=== PATIENT | male | born 1995 | race Caucasian/White ===

== ENCOUNTER 2017-02-21 04:49 | Emergency (ER) | payer SELFPAY ==
[~2017-02-21] VITALS: Ht 175.3 cm; Wt 79.3 kg
[2017-02-21 04:55] VITALS: BP 132/65; PULSE 85; RESP 20; TEMP 99.6; O2SAT 0; O2SAT 99
[2017-02-21 05:36] LABS: BLOOD, URINE NEG (NEG); GLUCOSE,URINE NEG (NEG); NITRITE,URINE NEG (NEG)
[2017-02-21 05:44] LABS: KETONE, URINE 80 OR GREATER mg/dL (NEG)
[2017-02-21 05:45] LABS: URINE COLOR YELLOW (YELLW/STRAW)
[2017-02-21 05:46] LABS: COMMENT (UR) CULT NOT INDICATED; CULTURE IF INDICATED CULT NOT INDICATED; MUCUS URINE MOD /lpf (OCC); RBC, URINE 0-3 /hpf (0-3); SQUAMOUS EPITHELIAL CELL URINE 0-5 /hpf (0-5)
[2017-02-21 05:53] LABS: AUTOMATED NEUTROPHIL # 6.6 TH/MM3 (1.8-7.7); BASOPHIL % 0.5 % (0.0-2.0); CHLORIDE 102 MEQ/L (98-107); EOSINOPHIL # 0.1 TH/MM3 (0-0.4); EOSINOPHIL % 1.2 % (0.0-4.0); HEMATOCRIT 42.8 % (39.0-51.0); HEMO FLAGS DIFF FINAL; LYMPH % 14.1 % (9.0-44.0); LYMPHOCYTE # 1.2 TH/MM3 (1.0-4.8); MEAN CELL VOLUME 82.3 FL (80.0-100.0); MEAN CORPUSCULAR HEMOGLOBIN 28.3 PG (27.0-34.0); MEAN CORPUSCULAR HGB CONC 34.4 % (32.0-36.0); MONO % 9.2 % (0.0-8.0); PLATELET COUNT 207 TH/MM3 (150-450); POTASSIUM 3.1 MEQ/L (3.5-5.1); RED BLOOD COUNT 5.21 MIL/MM3 (4.50-5.90); RED CELL DISTRIBUTION WIDTH 11.8 % (11.6-17.2); SODIUM (NA) 138 MEQ/L (136-145); WHITE BLOOD COUNT 8.7 TH/MM3 (4.0-11.0)
[2017-02-21 05:57] LABS: ANION GAP 10 MEQ/L (5-15); BICARBONATE 25.7 MEQ/L (21.0-32.0); BLOOD UREA NITROGEN 10 MG/DL (7-18)
[2017-02-21 06:00] LABS: ALT (GPT) 11 U/L (12-78); AST (GOT) 22 U/L (15-37); GLOMERULAR FILTRATION RATE 114 ML/MIN (>89)
[2017-02-21 06:02] LABS: TOTAL BILIRUBIN ADULT 0.9 MG/DL (0.2-1.0)
[2017-02-21 06:03] LABS: ALKALINE PHOSPHATASE 77 U/L (45-117)
--- NOTE | 2017-02-21 06:38 | PD ---
HPI Chief Complaint: GI Complaint Time Seen by Provider: 05:04 Travel History International Travel<30 days: No Contact w/Intl Traveler<30days: No Traveled to known affect area: No History of Present Illness HPI The patient is a 21-year-old male that complains of abdominal pain since Wednesday. On Wednesday he took what appear to be some Lortab fives for his back pain. The patient has a decreased appetite and started vomiting on Wednesday. He last vomited 10 PM tonight. His last bowel movement was hard. He denies any diarrhea. PFSH Past Medical History Medical History: Denies Significant Hx Tetanus Vaccination: > 5 Years Influenza Vaccination: No Past Surgical History Surgical History: No Previous Surgery Social History Alcohol Use: Yes ("SOMETIMES") Tobacco Use: Yes ("EVERY NOW AND THEN") Substance Use: No Allergies-Medications (Allergen,Severity, Reaction): Coded Allergies: No Known Allergies (Unverified , 02/21/17) Reported Meds & Prescriptions Reported Meds & Active Scripts Active Phenergan (Promethazine HCl) 25 Mg Tablet 25 Mg PO Q6H PRN Omeprazole 20 Mg Tab 20 Mg PO DAILY Review of Systems Except as stated in HPI: all other systems reviewed are Neg Physical Exam Narrative GENERAL: The patient is alert, oriented 3, moderately dehydrated appearing in slight apparent distress with his midline epigastric pain. His vital signs are normal. SKIN: Focused skin assessment warm/dry. HEAD: Atraumatic. Normocephalic. EYES: Pupils equal and round. No scleral icterus. No injection or drainage. ENT: No nasal bleeding or discharge. Mucous membranes show a fiery red throat without exudate or abscess. NECK: Trachea midline. No JVD. CARDIOVASCULAR: Regular rate and rhythm. No murmur appreciated. RESPIRATORY: No accessory muscle use. Clear to auscultation. Breath sounds equal bilaterally. GASTROINTESTINAL: Abdomen soft, with tenderness in the midline epigastrium to direct palpation, nondistended. Hepatic and splenic margins not palpable. No guarding or rebound is present. MUSCULOSKELETAL: No obvious deformities. No clubbing. No cyanosis. No edema. NEUROLOGICAL: Awake and alert. No obvious cranial nerve deficits. Motor grossly within normal limits. Normal speech. PSYCHIATRIC: Appropriate mood and affect; insight and judgment normal. Data Data Last Documented VS Vital Signs Date Time Temp Pulse Resp B/P Pulse Ox O2 Delivery O2 Flow Rate FiO2 7/30/17 04:55 99.6 85 20 132/65 99 Orders Complete Blood Count With Diff (02/21/17 05:21) Comprehensive Metabolic Panel (02/21/17 05:21) Lipase (02/21/17 05:21) Urinalysis - C+S If Indicated (02/21/17 05:21) Group A Rapid Strep Screen (02/21/17 05:21) Monoscreen (02/21/17 05:21) Strep Culture (Group A) (02/21/17 05:20) Sodium Chlor 0.9% 1000 Ml Inj (Ns 1000 M (02/21/17 06:45) Labs Laboratory Tests Test 02/21/17 02/21/17 05:25 05:30 White Blood Count 8.7 TH/MM3 Red Blood Count 5.21 MIL/MM3 Hemoglobin 14.7 GM/DL Hematocrit 42.8 % Mean Corpuscular Volume 82.3 FL Mean Corpuscular Hemoglobin 28.3 PG Mean Corpuscular Hemoglobin 34.4 % Concent Red Cell Distribution Width 11.8 % Platelet Count 207 TH/MM3 Mean Platelet Volume 9.2 FL Neutrophils (%) (Auto) 75.0 % Lymphocytes (%) (Auto) 14.1 % Monocytes (%) (Auto) 9.2 % Eosinophils (%) (Auto) 1.2 % Basophils (%) (Auto) 0.5 % Neutrophils # (Auto) 6.6 TH/MM3 Lymphocytes # (Auto) 1.2 TH/MM3 Monocytes # (Auto) 0.8 TH/MM3 Eosinophils # (Auto) 0.1 TH/MM3 Basophils # (Auto) 0.0 TH/MM3 CBC Comment DIFF FINAL Differential Comment Sodium Level 138 MEQ/L Potassium Level 3.1 MEQ/L Chloride Level 102 MEQ/L Carbon Dioxide Level 25.7 MEQ/L Anion Gap 10 MEQ/L Blood Urea Nitrogen 10 MG/DL Creatinine 0.85 MG/DL Estimat Glomerular Filtration 114 ML/MIN Rate Random Glucose 107 MG/DL Calcium Level 8.6 MG/DL Total Bilirubin 0.9 MG/DL Aspartate Amino Transf 22 U/L (AST/SGOT) Alanine Aminotransferase 11 U/L (ALT/SGPT) Alkaline Phosphatase 77 U/L Total Protein 7.6 GM/DL Albumin 3.6 GM/DL Lipase 116 U/L Urine Color YELLOW Urine Turbidity CLEAR Urine pH 6.0 Urine Specific [place] 1.030 Urine Protein 30 mg/dL Urine Glucose (UA) NEG mg/dL Urine Ketones 80 OR GREATER mg/dL Urine Occult Blood NEG Urine Nitrite NEG Urine Bilirubin NEG Urine Leukocyte Esterase NEG Urine RBC 0-3 /hpf Urine WBC 3-5 /hpf Urine Squamous Epithelial 0-5 /hpf Cells Urine Mucus MOD /lpf Microscopic Urinalysis Comment CULT NOT INDICATED MDM Medical Decision Making Medical Screen Exam Complete: Yes Emergency Medical Condition: Yes Medical Record Reviewed: Yes Differential Diagnosis Strep pharyngitis, viral pharyngitis, viral gastritis, dehydration, electrolyte disorder, pancreatitis, anemia, urinary tract infection Narrative Course The patient is moderately dehydrated both by his clinical appearance and by the high specific gravity of the urine as well as 80 or greater urine ketones. There is no evidence of any urinary infection. The complete metabolic profile is normal except for a potassium of 3.1. He is told to increase intake of fruits/fruit juices. Despite his extremely red throat his strep screen is negative and this is likely a viral pharyngitis. His CBC is normal which is suggestive of a viral syndrome. Impression: Viral gastritis with mild dehydration Plan: The patient be given omeprazole as well as Phenergan and follow-up next week with a primary care physician. If worse, he should return to emergency department. Diagnosis Primary Impression: Viral gastritis Additional Impression: Mild dehydration Additional Instructions: As we discussed, if you get worse you will need to return to emergency department. Otherwise, follow up next week with a primary care physician. Drink clear liquids like Gatorade but also add fruit/fruit juices to your diet to build up your potassium. The Prilosec is taken one tablet twice daily to cut down on your stomach acid and the Phenergan is for nausea, this is one tablet every 6 hours as needed for nausea. You were dehydrated and you need to increase liquid intake. Med/Other Pt SpecificInfo: Prescription(s) given Scripts Promethazine (Phenergan)25 Mg [id number] Mg PO Q6H PRN (NAUSEA OR VOMITING) #30 TAB Ref 0 Prov:Alan Sanabria MD 02/21/17 Omeprazole 20 Mg Tab20 Mg PO DAILY #30 TAB Ref 0 Prov:Alan Sanabria MD 02/21/17 Disposition: 01 DISCHARGE HOME Condition: Stable Alan Sanabria MD Feb 21, 2017 06:37
[2017-02-21] MEDS: SODIUM CHLOR 0.9% 1000 ML INJ 1,000 ML IV SCH ×2 (06:45→07:51)
[2017-02-21] MEDS ORDERED: OMEP20TA PO (06:52)
[2017-02-21] MEDS ORDERED: PROM25TA10 PO (06:52)
[2017-02-21 08:43] VITALS: BP 130/78
== END 2017-02-21 08:46 | disposition home or self-care (01) ==
LOC: PHED 04:49
DX: A08.4 Viral intestinal infection, unspecified (principal); E86.0 Dehydration; Z72.0 Tobacco use
CPT/HCPCS: 80053; 81001; 83690; 85025; 86308; 87081; 87880; 96360; 99284; J7030

== ENCOUNTER 2017-02-22 21:51 | Emergency (ER) | payer SELFPAY ==
[~2017-02-22] VITALS: Ht 175.3 cm; Wt 78.7 kg
[~2017-02-22 21:51] MED LIST: OMEP20TA PO; PROM25TA10 PO
[2017-02-22 21:59] VITALS: BP 120/68; PULSE 77; RESP 16; TEMP 99.1; O2SAT 98
[2017-02-23] MEDS ORDERED: SODIUM CHLOR 0.9% 1000 ML INJ 1,000 ML IV SCH (01:16)
[2017-02-23] MEDS ORDERED: LIDOCAINE VISCOUS 2% SOLN 15 ML UDC PO ONE (01:30)
[2017-02-23] MEDS ORDERED: ONDANSETRON HCL 4 MG/2 ML VIAL IVP ONE (01:30)
[2017-02-23] MEDS ORDERED: SODIUM CHLORIDE 0.9% FLUSH 10 ML FLUSH IV FLUSH PRN (01:30)
[2017-02-23] MEDS ORDERED: ALUMINUM/MAGNESIUM/SIMETH 30 ML CUP PO ONE (01:30)
[2017-02-23] MEDS ORDERED: PANTOPRAZOLE SODIUM 40 MG VIAL IVP ONE (01:30)
[2017-02-23 01:45] VITALS: BP 142/72; PULSE 68; RESP 14; RESP 16; O2SAT 99
[2017-02-23 01:54] LABS: AUTOMATED NEUTROPHIL # 5.8 TH/MM3 (1.8-7.7); BASOPHIL % 0.3 % (0.0-2.0); EOSINOPHIL # 0.1 TH/MM3 (0-0.4); EOSINOPHIL % 1.5 % (0.0-4.0); HEMATOCRIT 46.3 % (39.0-51.0); HEMO FLAGS DIFF FINAL; LYMPH % 24.8 % (9.0-44.0); LYMPHOCYTE # 2.1 TH/MM3 (1.0-4.8); MEAN CELL VOLUME 84.6 FL (80.0-100.0); MEAN CORPUSCULAR HEMOGLOBIN 27.6 PG (27.0-34.0); MEAN CORPUSCULAR HGB CONC 32.7 % (32.0-36.0); MONO % 6.9 % (0.0-8.0); NEUT % 66.5 % (16.0-70.0); PLATELET COUNT 278 TH/MM3 (150-450); RED BLOOD COUNT 5.47 MIL/MM3 (4.50-5.90); RED CELL DISTRIBUTION WIDTH 12.4 % (11.6-17.2); WHITE BLOOD COUNT 8.6 TH/MM3 (4.0-11.0)
[2017-02-23 02:01] LABS: CHLORIDE 104 MEQ/L (98-107); POTASSIUM 3.4 MEQ/L (3.5-5.1); SODIUM (NA) 141 MEQ/L (136-145)
[2017-02-23 02:05] LABS: ANION GAP 9 MEQ/L (5-15); BICARBONATE 28.3 MEQ/L (21.0-32.0); BLOOD UREA NITROGEN 11 MG/DL (7-18)
[2017-02-23 02:07] LABS: APTT (PATIENT) 28.1 SEC (24.3-30.1); PROTHROMBIN TIME - PATIENT 11.5 SEC (9.8-11.6)
[2017-02-23 02:08] LABS: ALT (GPT) 15 U/L (12-78); AST (GOT) 25 U/L (15-37); GLOMERULAR FILTRATION RATE 95 ML/MIN (>89)
[2017-02-23] MEDS ORDERED: IOHEXOL 350 MG/ML 10 ML VIAL (for RAD DIAG) IV ONE (02:08)
[2017-02-23 02:11] LABS: ALKALINE PHOSPHATASE 77 U/L (45-117)
--- NOTE | 2017-02-23 02:44 | RADRPT ---
EXAM DATE/TIME: 02/23/2017 01:40 [facility] COMPARISON: No previous studies available for comparison. INDICATIONS : Abdominal and back pain for 1 week. IV CONTRAST: 100 cc Omnipaque 350 (iohexol) IV ORAL CONTRAST: No oral contrast ingested. RADIATION DOSE: 8.26 CTDIvol (mGy) MEDICAL HISTORY : None SURGICAL HISTORY : None. ENCOUNTER: Initial ACUITY: 4 - 6 days PAIN SCALE: 6/10 LOCATION: abdomen TECHNIQUE: Volumetric scanning of the abdomen and pelvis was performed. Using automated exposure control and ad justment of the mA and/or kV according to patient size, radiation dose was kept as low as reasonably achievable to obtain optimal diagnostic quality images. DICOM format image data is available electro nically for review and comparison. FINDINGS: LOWER LUNGS: The visualized lower lungs are clear. LIVER: Homogeneous density without lesion. There is no dilation of the biliary tree. No calcified gallston es. SPLEEN: Normal size without lesion. PANCREAS: Within normal limits. KIDNEYS: Normal in size and shape. There is no mass, stone or hydronephrosis. ADRENAL GLANDS: Within normal limits. VASCULAR: There is no aortic aneurysm. BOWEL/MESENTERY: No oral contrast was given limiting sensitivity. There is normal appendix. The stomach, small bowel, and colon demonstrate no acute abnormality. There is no free intraperitoneal air or fluid. ABDOMINAL WALL: Within normal limits. RETROPERITONEUM: There is no lymphadenopathy. BLADDER: No wall thickening or mass. REPRODUCTIVE: Within normal limits. INGUINAL: There is no lymphadenopathy or hernia. MUSCULOSKELETAL: Within normal limits for patient age. CONCLUSION: 1. Unremarkable bowel gas pattern and appendix. 2. The lumbar spine appears unremarkable. Everett Comer MD on February 23, 2017 at 2:40 Board Certified Radiologist. This report was verified electronically.
--- NOTE | 2017-02-23 03:27 | PD ---
HPI Chief Complaint: GI Complaint Time Seen by Provider: 00:35 Travel History International Travel<30 days: No Contact w/Intl Traveler<30days: No Traveled to known affect area: No History of Present Illness HPI Patient is a 21-year-old male comes in complaining of abdominal pain with nausea and vomiting. He was here a few days ago and was diagnosed with gastritis. He says he has been drinking lemon-kletsel dehe wintun Gatorade, but has not been eating very much. He says that he ate some eggs and potatoes this morning, which caused him to have severe pain. He says the pain is in his upper abdomen. He denies fever or chills. He has been taking omeprazole, but continues to have the pain. He says this started shortly after drinking alcohol last week. He is having normal bowel movements. PFSH Past Medical History Medical History: Denies Significant Hx Diminished Hearing: No Immunizations Current: Yes Tetanus Vaccination: > 5 Years Influenza Vaccination: No Past Surgical History Surgical History: No Previous Surgery Social History Alcohol Use: Yes ("SOMETIMES") Tobacco Use: Yes ("EVERY NOW AND THEN") Substance Use: No Allergies-Medications (Allergen,Severity, Reaction): Coded Allergies: No Known Allergies (Unverified , 02/23/17) Reported Meds & Prescriptions Reported Meds & Active Scripts Active Phenergan (Promethazine HCl) 25 Mg Tablet 25 Mg PO Q6H PRN Omeprazole 20 Mg Tab 20 Mg PO DAILY Review of Systems Except as stated in HPI: all other systems reviewed are Neg General / Constitutional: No: Fever, Chills HENT: No: Headaches, Lightheadedness Cardiovascular: No: Chest Pain or Discomfort Respiratory: No: Shortness of Breath Gastrointestinal: Positive: Nausea, Vomiting, Abdominal Pain, No: Diarrhea Genitourinary: No: Dysuria Skin: No Rash, No Change in Pigmentation Neurologic: No: Weakness, Dizziness Physical Exam Narrative GENERAL: Awake and alert, in no acute distress. SKIN: Focused skin assessment warm/dry. HEAD: Atraumatic. Normocephalic. EYES: Pupils equal and round. No scleral icterus. ENT: Mucous membranes pink and moist. NECK: Trachea midline. No JVD. CARDIOVASCULAR: Regular rate and rhythm. No murmur appreciated. RESPIRATORY: No accessory muscle use. Clear to auscultation. Breath sounds equal bilaterally. GASTROINTESTINAL: Abdomen soft, non-tender, nondistended. No CVA tenderness. MUSCULOSKELETAL: No obvious deformities. No clubbing. No cyanosis. No edema. NEUROLOGICAL: Awake and alert. No obvious cranial nerve deficits. Motor grossly within normal limits. Normal speech. PSYCHIATRIC: Appropriate mood and affect; insight and judgment normal. Data Data Last Documented VS Vital Signs Date Time Temp Pulse Resp B/P Pulse Ox O2 Delivery O2 Flow Rate FiO2 02/22/17 21:59 99.1 77 16 120/68 98 Orders Complete Blood Count With Diff (02/23/17 01:16) Comprehensive Metabolic Panel (02/23/17 01:16) Lipase (02/23/17 01:16) Prothrombin Time / Inr (Pt) (02/23/17:16) Act Partial Throm Time (Ptt) (02/23/17 01:16) Ct Abd/Pel W Iv Contrast(Rout) (02/23/17 01:16) Iv Access Insert/Monitor (02/23/17 01:16) Ecg Monitoring (02/23/17 01:16) Oximetry (02/23/17 01:16) Ondansetron Inj (Zofran Inj) (02/23/17 01:30) Pantoprazole Inj (Protonix Inj) (02/23/17 01:30) Sodium Chlor 0.9% 1000 Ml Inj (Ns 1000 M (02/23/17 01:16) Sodium Chloride 0.9% Flush (Ns Flush) (02/23/17 01:30) Al-Mag Hy-Si 40-40-4 Mg/Ml Liq (Mag-Al P (02/23/17 01:30) Lidocaine 2% Viscous (Xylocaine 2% Visco (02/23/17 01:30) Iohexol 350 Inj (Omnipaque 350 Inj) (02/23/17 02:08) Labs Laboratory Tests Test 02/23/17 01:40 White Blood Count 8.6 TH/MM3 Red Blood Count 5.47 MIL/MM3 Hemoglobin 15.1 GM/DL Hematocrit 46.3 % Mean Corpuscular Volume 84.6 FL Mean Corpuscular Hemoglobin 27.6 PG Mean Corpuscular Hemoglobin 32.7 % Concent Red Cell Distribution Width 12.4 % Platelet Count 278 TH/MM3 Mean Platelet Volume 8.4 FL Neutrophils (%) (Auto) 66.5 % Lymphocytes (%) (Auto) 24.8 % Monocytes (%) (Auto) 6.9 % Eosinophils (%) (Auto) 1.5 % Basophils (%) (Auto) 0.3 % Neutrophils # (Auto) 5.8 TH/MM3 Lymphocytes # (Auto) 2.1 TH/MM3 Monocytes # (Auto) 0.6 TH/MM3 Eosinophils # (Auto) 0.1 TH/MM3 Basophils # (Auto) 0.0 TH/MM3 CBC Comment DIFF FINAL Differential Comment Prothrombin Time 11.5 SEC Prothromb Time International 1.0 RATIO Ratio Activated Partial 28.1 SEC Thromboplast Time Sodium Level 141 MEQ/L Potassium Level 3.4 MEQ/L Chloride Level 104 MEQ/L Carbon Dioxide Level 28.3 MEQ/L Anion Gap 9 MEQ/L Blood Urea Nitrogen 11 MG/DL Creatinine 0.99 MG/DL Estimat Glomerular Filtration 95 ML/MIN Rate Random Glucose 88 MG/DL Calcium Level 9.1 MG/DL Total Bilirubin 1.0 MG/DL Aspartate Amino Transf 25 U/L (AST/SGOT) Alanine Aminotransferase 15 U/L (ALT/SGPT) Alkaline Phosphatase 77 U/L Total Protein 8.0 GM/DL Albumin 3.7 GM/DL Lipase 282 U/L MDM Medical Decision Making Medical Screen Exam Complete: Yes Emergency Medical Condition: Yes Medical Record Reviewed: Yes Differential Diagnosis Gastritis versus GERD versus pancreatitis versus cholecystitis versus biliary colic Narrative Course Patient is a 21-year-old male comes in complaining of abdominal pain. Exam shows no acute abnormalities. IV established, labs sent. Lipase, liver function testing, creatinine all within normal limits. Labs show no acute abnormalities. CT abdomen and pelvis performed shows no acute abnormalities. Patient given GI cocktail, IV fluids, Zofran, Protonix. He reports feeling much better. He is advised to eat a bland diet. Advised to avoid acidic foods or drinks, spicy foods, chocolate, caffeine, alcohol, tomatoes, peppers. He is advised follow-up with gastroenterology. Advised to take Maalox as needed for abdominal pain as well as continuing the omeprazole. Advised to return to the emergency department as needed for any worsening symptoms. Diagnosis Primary Impression: Gastritis Qualified Code: K29.00 - Acute gastritis without hemorrhage, unspecified gastritis type Referrals: Farhad,Daniel El-sayed MD call for appointment Patient Instructions: Gastritis (ED), Gastroesophageal Reflux Disease (ED), General Instructions Additional Instructions: Eat a bland diet. Avoid acidic foods, spicy foods, tomatoes, peppers, caffeine , chocolate, alcohol. Take Maalox as needed. Continue the omeprazole. Follow up with gastroenterology. Return to the emergency department as needed for any worsening symptoms. Disposition: 01 DISCHARGE HOME Condition: Stable Tabby Dobbs MD Feb 23, 2017 03:27
[2017-02-23 03:40] VITALS: BP_SYST 117; BP_SYST 127; BP_DIAS 42; BP_DIAS 61; PULSE 58; PULSE 60; RESP 16; O2SAT 98; O2SAT 99
== END 2017-02-23 03:57 | disposition home or self-care (01) ==
LOC: PHED 21:51
DX: K29.00 Acute gastritis without bleeding (principal); Z72.0 Tobacco use
CPT/HCPCS: 74177; 80053; 83690; 85025; 85610; 85730; 96361; 96374; 96375; 99285; C9113; J2405; J7030; Q9967